=== PATIENT | female | born 1995 | race Caucasian/White ===

== ENCOUNTER 2017-05-13 22:49 | Emergency (ER) | payer OTHER, BC ==
[2017-05-13 23:10] VITALS: BP 143/85; PULSE 80; RESP 20; TEMP 98.5; O2SAT 100
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
== END 2017-05-14 01:27 | disposition home or self-care (01) ==
LOC: C.ER 22:49
DX: S46.912A Strain of unspecified muscle, fascia and tendon at shoulder and upper arm level, left arm, initial encounter (principal); V49.50XA Passenger injured in collision with unspecified motor vehicles in traffic accident, initial encounter; Y92.410 Unspecified street and highway as the place of occurrence of the external cause

== ENCOUNTER 2017-09-10 23:01 | Emergency (ER) | payer BC, OTHER ==
[2017-09-10 23:14] VITALS: BP 116/78; PULSE 80; RESP 14; TEMP 99.4; O2SAT 98
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
== END 2017-09-11 00:25 | disposition home or self-care (01) ==
LOC: C.ER 23:01
DX: M79.672 Pain in left foot (principal)